=== PATIENT | male | born 1965 | race Caucasian/White ===

== ENCOUNTER 2019-01-28 02:57 | Outpatient (CLI) | payer SELFPAY | END 2019-01-28 02:58 | disposition EMS.NT | LOC: EMS 02:57 | PROVIDERS: ATTEND Surgery | DX: R11.2 Nausea with vomiting, unspecified (principal) ==

== ENCOUNTER 2023-01-10 05:47 | Emergency (ER) | payer OTHER ==
[2023-01-10 06:03] VITALS: BP 138/82; O2SAT 96
--- NOTE | 2023-01-10 06:55 | ED Physician Documentation ---
History of Present Illness - Stated complaint Stated Complaint: COUGH PX - Chief complaint Chief Complaint: Resp - History obtained from History obtained from: Patient - Additonal information Additional information: The pt comes to the ED for CC of cough, congestion, and low-grade fever for the past couple days. No GI sx. No known sick contacts. He has been taking Tylenol and cough medicine, and states he is just having trouble sleeping. He would like something better for the cough, and wants to make sure he doesn't have pneumonia, as he felt this way previously and that's what it turned out to be. He took a covid test at home, which was negative. PD PAST MEDICAL HISTORY - Past Medical History Past Medical History: Yes : Benign prostate hypertrophy - Past Surgical History General: Appendectomy - Present Medications Home Medications: Ambulatory Orders Medication Instructions Recorded Confirmed Albuterol Sulf [Ventolin Hfa 1 - 2 puffs INH Q4HR PRN #1 each 01/10/23 Inhaler] Codeine Phosphate/Guaifenesin 10 ml PO Q6H PRN #100 ml 01/10/23 [Guaifen-Codeine 200-20 mg/10Ml] Cyclobenzaprine [Flexeril] 10 mg PO TID PRN 01/10/23 01/10/23 Tamsulosin [Flomax] 1 cap PO DAILY 01/10/23 01/10/23 predniSONE [Deltasone] 60 mg PO DAILY 5 Days #15 tablet 01/10/23 - Allergies Allergies/Adverse Reactions: Allergies Allergy/AdvReac Type Severity Reaction Status Date / Time No Known Drug Allergies Allergy Verified 01/10/23 05:58 - Social History Does the pt smoke?: No Smoking Status: Never smoker - Immunizations Immunizations are current?: Yes PD ED PE NORMAL - Vitals Vital signs reviewed: Yes - General General: Alert and oriented X 3, No acute distress, Well developed/nourished - HEENT HEENT: Atraumatic, PERRL, EOMI, Moist mucous membranes - Neck Neck: Supple, no meningeal sign - Cardiac Cardiac: RRR, No murmur - Respiratory Respiratory: No respiratory distress, Clear bilaterally - Abdomen Abdomen: Soft, Non tender, Non distended - Derm Derm: Normal color, Warm and dry, No rash - Extremities Extremities: No deformity - Neuro Neuro: Alert and oriented X 3, Other (grossly intact) - Psych Psych: Normal mood, Normal affect Results - Vitals Vitals: Oxygen O2 Source Room air - Labs Labs: Laboratory Tests 01/10/23 06:22 Nasal Adenovirus (PCR) NOT DETECTED Nasal B. parapertussis DNA (PCR) NOT DETECTED Nasal Coronavir 229E PCR NOT DETECTED Nasal Coronavir HKU1 PCR NOT DETECTED Nasal Coronavir NL63 PCR NOT DETECTED Nasal Coronavir OC43 PCR NOT DETECTED Nasal Enterovir/Rhinovir PCR NOT DETECTED Nasal Influenza B PCR NOT DETECTED Nasal Influenza A PCR NOT DETECTED Nasal Parainfluen 1 PCR DETECTED A Nasal Parainfluen 2 PCR NOT DETECTED Nasal Parainfluen 3 PCR NOT DETECTED Nasal Parainfluen 4 PCR NOT DETECTED Nasal RSV (PCR) NOT DETECTED Nasal B.pertussis DNA PCR NOT DETECTED Nasal C.pneumoniae (PCR) NOT DETECTED Charbel Human Metapneumo PCR NOT DETECTED Nasal M.pneumoniae (PCR) NOT DETECTED Nasal SARS-CoV-2 (PCR) NOT DETECTED - Rads (name of study) chest XR Relevant Findings:: Final report received, See rad report (neg) PD Medical Decision Making - ED course Complexity details: reviewed results, re-evaluated patient, considered differential, d/w patient ED course: CXR was performed and negative. Resp PCR panel was performed and pt opted to be discharged prior to results coming back. We have discussed that he most likely has a viral syndrome which will be self-limited and resolve on its own, given time. We have discussed symptomatic management at home, as well as the usual indications for return. The pt's PCR did come back positive for nasal parainfluenza virus. Departure - Departure Disposition: 01 Home, Self Care Clinical Impression: Upper respiratory tract infection Qualifiers: URI type: unspecified viral URI Qualified Code(s): J06.9 - Acute upper respiratory infection, unspecified Condition: Stable Instructions: ED Viral Syndrome Prescriptions: Albuterol Sulf [Ventolin Hfa Inhaler] 1 - 2 puffs INH Q4HR PRN #1 each PRN Reason: Shortness Of Air/Wheezing predniSONE [Deltasone] 60 mg PO DAILY 5 Days #15 tablet Codeine Phosphate/Guaifenesin [Guaifen-Codeine 200-20 mg/10Ml] 10 ml PO Q6H PRN #100 ml PRN Reason: Cough Comments: Your chest x-ray is completely clear. Most likely, you have one of the many viral illnesses that are going around and causing such symptoms that you have right now. A viral panel has been obtained and is pending at this time. These generally come back in a more delayed fashion on the order of some hours. As such, we will let you go home, and we will contact you if any significant positives come back. We do not generally call back negative results; however, you may check your results check your results on the hospital website at [email or web address]. From here you may sign up for the patient portal by clicking on the "my [email or web address]" tab. In this way, you may check your on results from home if you wish. You may continue to take ibuprofen and Tylenol as needed. Prescriptions for the steroid and the inhaler and cough medicine have been electronically transmitted to the [facility] pharmacy in [place]. You may pick this up this morning. Please follow-up with your primary doctor if you are not feeling better in a week. In the meantime, please drink plenty of fluids and get rest as much as possible. Forms: PCP List Discharge Date/Time: 01/10/23 07:13
[2023-01-10 07:23] LABS: B. PARAPERTUSSIS- RESP PCR PAN NOT DETECTED; B. PERTUSSIS- RESP PCR PANEL NOT DETECTED; C. PNEUMONIAE- RESP PCR PANEL NOT DETECTED; CORONAVIRUS 229E-RESP PCR NOT DETECTED; CORONAVIRUS HKU1-RESP PCR NOT DETECTED; CORONAVIRUS NL63-RESP PCR NOT DETECTED; CORONAVIRUS OC43-RESP PCR NOT DETECTED; HUMAN METAPNEUMOVIRUS NOT DETECTED; INFLUENZA A- RESP PCR PANEL NOT DETECTED; INFLUENZA B - RESP PCR PANEL NOT DETECTED; M. PNEUMONIAE- RESP PCR PANEL NOT DETECTED; PARAINFLUENZA VIRUS 1 DETECTED; PARAINFLUENZA VIRUS 2 NOT DETECTED; PARAINFLUENZA VIRUS 3 NOT DETECTED; PARAINFLUENZA VIRUS 4 NOT DETECTED; RHINOVIRUS/ENTEROVIRUS NOT DETECTED; RSV- RESP PCR PANEL NOT DETECTED; SARS-CoV-2 -RESP PCR PANEL NOT DETECTED
--- NOTE | 2023-01-10 08:17 | XRAY Report ---
PROCEDURE: Chest 2 View X-Ray INDICATIONS: cough TECHNIQUE: 2 views of the chest were acquired. COMPARISON: None. FINDINGS: Surgical changes and devices: None. Lungs and pleura: No pleural effusions or pneumothorax. Lungs are clear. Mediastinum: Mediastinal contours appear normal. Heart size is normal. Bones and chest wall: No suspicious bony lesions. Overlying soft tissues appear unremarkable. IMPRESSION: No acute cardiopulmonary process. Findings are concordant with preliminary interpretation provided by [facility]. Reviewed by: Georgi Arevalo MD on 01/10/2023 8:16 AM PDT Approved by: Georgi Arevalo MD on 01/10/2023 8:16 AM PDT Station ID: [id number]
== END 2023-01-10 07:13 | disposition home or self-care (01) ==
LOC: ED 05:47
DX: J06.9 Acute upper respiratory infection, unspecified (principal); Z20.822 Contact with and (suspected) exposure to COVID-19; Z79.899 Other long term (current) drug therapy
CPT/HCPCS: 87633; 99284